=== PATIENT | female | born 1945 | race Caucasian/White ===

== ENCOUNTER 2017-02-06 21:00 | Inpatient (IN) | payer MEDICARE ==
--- NOTE | 2017-02-06 21:28 | ERNOTE ---
Back Pain ER HPI Date of Service: 02/06/17 Time Seen by Provider: 02/06/17 21:27 Immunizations: IMMUNIZATION HX Immunizations Up to Date Yes History of Influenza Vaccine Yes Hx Pneumococcal Vaccination Yes Allergies/Adverse Reactions: Allergies No Known Allergies Allergy (Unverified 02/06/17 21:07) Home Medications: HOME MEDICATIONS Atenolol [Tenormin] 25 mg PO BID 02/06/17 [Last Taken Unknown] Atorvastatin Calcium [Lipitor] 10 mg PO DAILY 02/06/17 [Last Taken Unknown] Insulin NPH Hum/Reg Insulin Hm [Relion Novolin 70-30 Vial] 40 unit SQ HS [Last Taken Unknown] Insulin NPH Hum/Reg Insulin Hm [Relion Novolin 70-30 Vial] 60 unit SQ DAILY [Last Taken Unknown] Levothyroxine Sodium [Synthroid] 25 mcg PO DAILY 02/06/17 [Last Taken Unknown] metFORMIN HCL [Glucophage] 500 mg PO BIDWM 02/06/17 [Last Taken Unknown] Narrative: C/O N AND V AND LOW BACK PAIN. STATES THIS HAS BEEN GETTING WORSE FOR DAYS. SHE SAYS SHE HAS INCREASED URINARY FREQUENCY BUT NO DYSURIA. SHE THEN TELLS ME SHE HAS NOT TAKEN ANY INSULIN FOR A WEEK BECAUSE SHE RAN OUT AND COULD NOT AFFORD TO GET MORE. NO HX OF ANY FEVER OR CHILLS. SHE HAS BEEN EATING AND DRINKING. SHE DENIES NEW MEDS. SHE STATES SHE LAST SAW HER DOCTOR 1-2 MONTHS AGO. A FAMILY MEMBER SAYS THEY CHECKED HER GLUCOSE AT HOME AND IT WAS 400+. SHE DOCTORS IN [place] . Review of Systems - Review of Systems Constitutional: Present: See HPI, fatigue Respiratory: Present: no symptoms reported Cardiology: Present: no symptoms reported Gastrointestinal/Abdominal: Present: nausea, vomiting Genitourinary: Present: See HPI, frequency Musculoskeletal: Present: no symptoms reported Skin: Present: no symptoms reported Neurological: Present: no symptoms reported Endocrine: Present: no symptoms reported Hematologic/Lymphatic: Present: no symptoms reported Psych: Present: no symptoms reported - Patient's Past Medical History Patient History - Medical: Arthritis, Diabetes Type 2 Insulin Dependent, GERD Patient History - Cardiac/Respiratory: Hypertension, Hyperlipidemia Patient History - Cancer: Cervical Patient History - Surgical Procedures: Cholecystectomy, Hysterectomy Patient History - Other: None - Social History Living Situations: home Psych History: No pertinent hx Smoking Status: Former smoker Have you smoked in the past 12 months: No Do you dip or chew tobacco: No Alcohol Use: none Drug Use: none - Immunizations Immunizations Up to Date: Yes Hx Pneumococcal Vaccination: Yes History of Influenza Vaccine: Yes Physical Exam - Physical Exam General Appearance: Present: wd/wn, alert, mild distress, other - OBESE ELDERLY LADY ALERT AND ORIENTED BUT POOR HISTORIAN. Ears, Nose, Throat: Present: normal except -, dry mucous membranes Respiratory: Present: no respiratory distress, normal breath sounds, no accessory muscle use, chest nontender, lungs clear Cardiovascular/Chest: Present: regular rate, rhythm, no murmur, normal peripheral pulses Peripheral Pulses: N=norm/S=strong/W=weak/B=bound/A=absent: Dorsalis-pedis (R): Normal, Dorsalis-pedis (L): Normal Gastrointestinal/Abdominal: Present: normal bowel sounds, nontender, nondistended, soft, no organomegaly Back Exam: Present: normal inspection, normal range of motion, no CVA tenderness Neurological Exam: Present: alert, oriented, normal mood/affect Skin Exam: Present: normal color, warm/dry ED Progress - Date and Time Seen: Date and Time: 02/06/17 22:32 PT. ASKED TO URINATE AND THEN MOM GOT UPSET WHEN RN ASKED PT TO WALK TO B.R. TO GIVE URINE SAMPLE. - Results and Orders Patient's Lab Results:: I have reviewed the patient's lab results. Results and Orders: ELEVATED SERUM GLUCOSE = 496 WITH LOW CO2. SHE HAS + GLUC I URINE AND + KETONES IN HER URINE BUT NO SIG. BACT . WBC = 15.1 WITH HGB OF 15.7 . HGB A 1 C = 10.2 - Vital Signs Vital Signs: Vital Signs 02/06/17 21:10 Temperature 36.4 C L Pulse Rate 103 H Respiratory 22 H Rate Blood Pressure 193/79 O2 Sat by Pulse 98 Oximetry - Progress/Reassessment Chief Complaint: Back Pain Plan - Plan Plan: BECAUSE OF POOR HOME SITUATION AND HYPERGLYCEMIA WITH KETONURIA I WILL ADMIT TO HOSPITALIST ( GIANLUCA) FOR IV'S AND INSULIN AND HELP WITH GETTING HER MEDS. Departure Clinical Impression: DKA (diabetic ketoacidoses) Qualifiers: Diabetes mellitus type: type 2 Diabetes mellitus complication detail: without coma Qualified Code(s): E13.10 - Other specified diabetes mellitus with ketoacidosis without coma - Departure Disposition: CH Condition: Fair
[2017-02-06 21:43] LABS: Urine Bilirubin 1 mg/dl (NEGATIVE); Urine Blood 25 /ul (NEGATIVE); Urine Ketone Large mg/dL (NEGATIVE); Urine Nitrite Negative (NEGATIVE); Urine Protein 100 mg/dL (NEGATIVE); Urine Specific Gravity 1.025 SP.GR. (1.005-1.010); Urine Urobilinogen Normal (NORMAL); Urine pH 5.5 pH (5.0-7.0)
[2017-02-06 21:54] LABS: Urine Appearance Clear; Urine Color Yellow
[2017-02-06 21:55] LABS: Urine Bacteria TRACE; Urine RBC 0-5 /hpf (0-5); Urine WBC 0-5 /hpf (0-5)
[2017-02-06 22:09] LABS: Hematocrit 49.3 % (37.0-47.0); Hemoglobin 15.7 gm/dL (12.5-16.0); Mean Cell Volume 84.7 fl (78-100); Mean Corpuscular Hgb Conc 31.8 g/dl (32-36); Mean Platelet Volume 10.6 fl (6.0-9.5); Neutrophil # 13.3 K/mm3 (1.3-6.0); Neutrophil % 88.3 % (42-75.0); Platelet Count 340 K/mm3 (150-450); Red Blood Count 5.82 M/mm3 (4.2-5.4); White Blood Count 15.1 K/mm3 (4.0-10.5)
--- OUTSIDE RECORDS SUMMARY | 2017-02-06 22:09 | XMS REPORT | Continuity of Care Document ---
:1945 Author Organization [facility] ([facility]) Address [address] [place] [address] Phone [phone] Care Team Providers Name Role Phone Elian Macedo Primary Care Provider [phone] Source Comments This disclosure is being made pursuant to the Care Everywhere program, applicable federal and state laws, and may not contain all informaitonavailable regarding this patient.[facility] ([facility]) Active Allergies and Adverse Reactions No Known Allergies Current Medications Prescription Sig. Disp. Refills Start Date End Date Status hydrochlorothiazide 25 mg Take 25 mg by Active tablet mouth daily. atenolol 25 mg tablet Take 25 mg by Active mouth daily. levothyroxine 25 mcg tablet Take 25 mcg by Active mouth every morning before breakfast. atorvastatin 10 mg tablet Take 10 mg by Active mouth every evening. omega-3 fatty acids 1 gram Take 1 g by Active capsule mouth 2 times daily HYDROCODONE/ACETAMINOPHEN Active (VICODIN ES PO) OTHER new insulin: Active "RELION" metFORMIN 500 mg tablet Take 500 mg by Active mouth 2 times daily with meals. canagliflozin (INVOKANA) 100 Take 100 mg by Active mg tablet mouth daily. 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 Right Eye Left Eye Time To Recurrence: Time To Recurrence: Date VA (D cc) CMT Status Procedure VA (D cc) CMT Status Procedure Cmts 03/20/2012 20/125 Avastin #[id number] 20/200 Avastin #[id number] 04/17/2012 20/100 +1 20/150 Triesence 05/21/2012 20/200 20/100-1 Triesence 10/15/2012 20/125 -1 triesence [id number] 20/150 03/18/2013 20/60-1 20/150 Triesence [id number] 04/29/2013 20/80 Triesence [id number] 20/100 -1 10/14/2013 20/60-2 sc 20/150 sc Other (see comments) kenalog #[id number] 02/24/2014 20/50 -1 cc 20/200 -2 cc Triesence [id number] 05/26/2014 20/70+2 cc Triesence [id number] 20/125 cc 11/17/2014 20/60 cc 20/125-1 cc Triesence [id number] 12/22/2014 20/50 cc Triesence [id number] 20/200 -2 cc 08/03/2015 20/50 -1 cc Triesence [id number] 20/125 cc 02/01/2016 20/50-2 +3 cc Iluvien [id number] 20/150 cc Resolved Problems Problem Noted Date Resolved Date Diabetic retinopathy of both eyes 05/21/2012 11/02/2015 Most Recent Encounters Date Type Specialty Providers Description 01/30/2017 Office Visit Ophthalmology Govind Obrien, Chief Comp: Patient Specialty Reported Reason For Visit 01/02/2017 Office Visit Ophthalmology Govind Obrien, Chief Comp: Patient Specialty Reported Reason For Visit 11/28/2016 Office Visit Ophthalmology Govind Obrien, Chief Comp: Patient Specialty Reported Reason For Visit Social History Tobacco Use Types Packs/Day Years Used Date Former Smoker Cigarettes 1 Quit: 03/20/1985 Smokeless Tobacco: Never Used Tobacco Cessation:Counseling Given: Yes Comments: Alcohol Use Drinks/Week oz/Week Comments No Plan of Care Date Type Specialty Providers Description 03/20/2017 Appointment Ophthalmology Govind Obrien MD Chief Comp: Patient Specialty [address] [place] [address] Visit [phone] (Fax) Health Maintenance Due Date Last Done Comments HCV Screening 1945 Hepatitis B Vaccine (1 of 3 - 1945 Primary Series) Tdap Vaccine 02[birth year]19/1956 DIABETIC: Cholesterol 1963 Diabetic: Hdl 1963 DIABETIC: Hemoglobin A1C 1963 Diabetic: Ldl 1963 DIABETIC: Microalbumin 1963 DIABETIC: Triglycerides 1963 Td Vaccine 1963 Mammogram 1985 Colonoscopy 1995 Zoster Vaccine 2005 Osteoporosis Screening (DXA 2010 Bone Density) Pneumococcal Vaccine (1 of 2 2010 - PCV13) DIABETIC: Foot Exam 07/22/2012 Influenza Vaccine: Seasonal 05/13/2017 (Season Ended) DIABETIC: Retinal Eye Exam 09/26/2017 09/26/2016, Additional history exists 06/27/2016, 04/25/2016 Results from Last 3 Months Not on file
[2017-02-06 22:18] LABS: Albumin * 3.7 gm/dl (3.4-5.0); Anion Gap 32.5 mmol/L (6.8-13.8); BUN/Creatinine Ratio 13.8 (9.0-21.6); Bilirubin, Total 0.5 mg/dL (0.0-1.1); Ca. Corrected For Albumin 9.3 mg/dL (8.4-10.2); Calcium * 9.4 mg/dL (7.9-10.9); Carbon Dioxide 10.6 mmol/L (24-32.6); Potassium 5.1 mmol/L (3.4-4.6); TSH * 2.433 uIU/mL (0.358-3.74)
[2017-02-06 23:19] LABS: Hemoglobin A1C 10.2 % (4.00-6.0)
[2017-02-07] MEDS ORDERED: NORMAL SALINE 1,000 ML IV ONE ×2 (00:22→00:57)
[2017-02-07] MEDS ORDERED: INSULIN REGULAR, HUMAN 100 UNITS/ML VIAL IV ONE (00:22)
[2017-02-07] MEDS ORDERED: ONDANSETRON HCL/PF 2 MG/ML VIAL IV ONE (00:22)
[2017-02-07] MEDS ORDERED: INSULIN REGULAR, HUMAN 100 UNITS/ML VIAL ONE (00:55)
[2017-02-07] MEDS ORDERED: ONDANSETRON HCL/PF 2 MG/ML VIAL ONE (00:55)
--- OUTSIDE RECORDS SUMMARY | 2017-02-07 01:06 | XMS REPORT | Continuity of Care Document ---
:1945 Author Organization [facility] ([facility]) Address [address] [place] [address] Phone [phone] Care Team Providers Name Role Phone Elian Macedo Primary Care Provider [phone] Source Comments This disclosure is being made pursuant to the Care Everywhere program, applicable federal and state laws, and may not contain all informaitonavailable regarding this patient.[facility] ([facility]) Active Allergies and Adverse Reactions No Known [...] CMT Status Procedure Cmts 03/20/2012 20/125 Avastin #[id number] 20/200 Avastin #[id number] 04/17/2012 20/100 +1 20/150 Triesence 05/21/2012 20/200 20/100-1 Triesence 10/15/2012 20/125 -1 triesence [id number] 20/150 03/18/2013 20/60-1 20/150 Triesence [id number] 04/29/2013 20/80 Triesence [id number] 20/100 -1 10/14/2013 20/60-2 sc 20/150 sc Other (see comments) kenalog #[id number] 02/24/2014 20/50 -1 cc 20/200 -2 cc Triesence [id number] 05/26/2014 20/70+2 cc Triesence [id number] 20/125 cc 11/17/2014 20/60 cc 20/125-1 cc Triesence [id number] 12/22/2014 20/50 cc Triesence [id number] 20/200 -2 cc 08/03/2015 20/50 -1 cc Triesence [id number] 20/125 cc 02/01/2016 20/50-2 +3 cc Iluvien [id number] 20/150 cc Resolved Problems Problem Noted Date [...] Obrien MD Chief Comp: Patient Specialty [address] [place] [address] Visit [phone] (Fax) Health Maintenance Due Date Last Done [...]
[2017-02-07 01:21] LABS: Magnesium 2.1 mg/dL (1.2-2.8); Phosphorus 5.2 mg/dL (2.2-4.2)
[2017-02-07 03:12] LABS: Anion Gap 31.8 mmol/L (6.8-13.8); BUN/Creatinine Ratio 15.8 (9.0-21.6); Calcium * 9.2 mg/dL (7.9-10.9); Estimated Creat Clear 25.8; Potassium 4.8 mmol/L (3.4-4.6)
--- NOTE | 2017-02-07 03:57 | HP ---
Chief Complaint - Chief Complaint Date of Service: 02/07/17 Time of Service: 03:52 Chief Complaint: DKA History of Present Illness: 71 years old elderly female adm to the hospital with reports of polyuria, loss of appetite,back pain and and leg pain. pt stated her discomfort began a year ago but got progressively worst last night. While at home her family took her Blood glucose which was 400mg/dl and brought her to the ER. She has not taken her insulin for about 1-2 weeks because she didn't have money to buy more. PMH significant for diabetes, hypothyroidism, hypertension and hyerlipidemia. In ER Blood glucose 496 she was given 10 unit insulin and blood glucose 355, will initiate insulin drip. Positive serum and urine ketone, A1C 10.2, WBC 15, K+ 5.1. She had IVF bolus in ER and will continue with aggressive IVF resuscitation. Monitor BMP. Plan of care discussed with pt she verbalized understanding and agrees. - Patient's Past Medical History Patient History - Medical: Arthritis, Diabetes Type 2 Insulin Dependent, GERD Patient History - Cardiac/Respiratory: Hypertension, Hyperlipidemia Patient History - Cancer: Cervical Patient History - Surgical Procedures: Cholecystectomy, Hysterectomy Patient History - Other: None - Family History Mother Family History - Medical: Father Family History - Medical: - Social History Living Situations: home Psych History: No pertinent hx Smoking Status: Former smoker Have you smoked in the past 12 months: No Do you dip or chew tobacco: No Alcohol Use: none Drug Use: none - Immunizations Immunizations Up to Date: Yes Hx Pneumococcal Vaccination: Yes History of Influenza Vaccine: Yes Review Of Systems (GEN) - Review of Systems Generalized/Overall Review: Present: No Symptoms Reported EENTM: Present: No Symptoms Reported Respiratory: Present: Cough Cardiac: Present: Palpitations Abdominal: Present: No Symptoms Reported Genitourinary: Present: Frequency, Polyuria Musculoskeletal: Present: Joint Pain, Back Pain Neurological: Present: No Symptoms Reported Skin: Present: No Symptoms Reported Endocrine: Present: Excessive Sweating, Increased Thirst, Other - no appetite Immunizations: IMMUNIZATION HX Immunizations Up to Date Yes History of Influenza Vaccine Yes Hx Pneumococcal Vaccination Yes Allergies/Adverse Reactions: Allergies Allergy/AdvReac Type Severity Reaction Status Date / Time No Known Allergies Allergy Unverified 02/06/17 21:07 Home Medications: HOME MEDICATIONS Atenolol [Tenormin] 25 mg PO BID 02/06/17 [Last Taken 02/05/17] Atorvastatin Calcium [Lipitor] 10 mg PO DAILY 02/06/17 [Last Taken 02/05/17] Insulin NPH Hum/Reg Insulin Hm [Relion Novolin 70-30 Vial] 40 unit SQ HS [Last Taken 02/03/17] Insulin NPH Hum/Reg Insulin Hm [Relion Novolin 70-30 Vial] 60 unit SQ DAILY [Last Taken 02/03/17] Levothyroxine Sodium [Synthroid] 25 mcg PO DAILY 02/06/17 [Last Taken 02/05/17] metFORMIN HCL [Glucophage] 500 mg PO BIDWM 02/06/17 [Last Taken 02/05/17] Exam - Exam Vital Signs: Vital Signs - Last Taken Temp 36.2 C L 02/07/17 01:26 Pulse 115 H 02/07/17 02:35 Resp 26 H 02/07/17 02:35 BP 152/58 02/07/17 02:35 Pulse Ox 100 02/07/17 02:35 Constitutional: Present: Alert, Oriented x3, Cooperative, Well developed, No distress, Elderly ENT Exam: Present: dry mucous membranes Eye Exam: bilateral eye: PERRL Neck: Present: full range of motion Back Exam: Present: normal inspection Breasts: Present: Exam deferred Respiratory: Present: chest non-tender, normal breath sounds, no respiratory distress, no accessory muscle use Cardiovascular/Chest: Present: normal peripheral pulses, no chest tenderness, tachycardia Peripheral Pulses: dorsalis-pedis (R): 3+, dorsalis-pedis (L): 3+ Abdomen: Present: Normal bowel sounds, soft, nontender, nondistended, no rebound tenderness /Rectal: Present: Exam deferred Extremity: Present: normal range of motion, non-tender, normal inspection, no pedal edema, normal capillary refill Skin Exam: Present: normal color, warm/dry, no cyanosis Lymphatic: Present: no adenopathy Neurologic: Present: oriented x 3 Appearance: Present: appropriate appearance Eye contact: Present: cooperative, good eye contact Thoughts: Present: normal thought pattern Diagnostic Studies: Abnormal Lab Results 02/07/17 02/07/17 02/07/17 Range/Units 02:15 02:45 Unknown VBG pH 6.965 L* (7.32-7.43) Plasma Sodium 145 H (130-142) mmol/L Potassium 4.8 H (3.4-4.6) mmol/L Carbon Dioxide 8.0 L (24-32.6) mmol/L Anion Gap 31.8 H (6.8-13.8) mmol/L BUN 25 H (3-23) mg/dL Creatinine 1.58 H (0.4-1.4) mg/dL Est GFR (Non-Af Amer) 34 L (60-130) mL/min Random Glucose 511 H* (70-110) mg/dL Phosphorus 5.2 H (2.2-4.2) mg/dL Serum Ketones Positive - 10mg/dl H (NEGATIVE) Laboratory Results WBC 15.1 K/mm3 (4.0-10.5) H 02/06/17 21:50 RBC 5.82 M/mm3 (4.2-5.4) H 02/06/17 21:50 Hgb 15.7 gm/dL (12.5-16.0) 02/06/17 21:50 Hct 49.3 % (37.0-47.0) H 02/06/17 21:50 MCV 84.7 fl (78-100) 02/06/17 21:50 MCH 27.0 pg (27-31) 02/06/17 21:50 MCHC 31.8 g/dl (32-36) L 02/06/17 21:50 RDW 15.0 % (11.5-14.0) H 02/06/17 21:50 Plt Count 340 K/mm3 (150-450) 02/06/17 21:50 MPV 10.6 fl (6.0-9.5) H 02/06/17 21:50 Immature Gran % (Auto) 2.90 % (0.001-0.429) H 02/06/17 21:50 Immature Gran # (Auto) 0.44 K/mm3 (0.000-0.0310) H 02/06/17 21:50 Neutrophils % 88.3 % (42-75.0) H 02/06/17 21:50 Lymphocytes % 5.0 % (20-51) L 02/06/17 21:50 Monocytes % 3.2 % (0.0-9) 02/06/17 21:50 Eosinophils % 0.0 % (0.0-3.0) 02/06/17 21:50 Basophils % 0.6 % (0.0-1.0) 02/06/17 21:50 Nucleated RBC % 0.0 k/mm3 (0-1) 02/06/17 21:50 Neutrophils # 13.3 K/mm3 (1.3-6.0) H 02/06/17 21:50 Lymphocytes # 0.8 k/mm3 (1.5-3.5) L 02/06/17 21:50 Monocytes # 0.5 k/mm3 (0.0-1.0) 02/06/17 21:50 Eosinophils # 0.0 k/mm3 (0.0-0.7) 02/06/17 21:50 Absolute Basophils 0.1 k/mm3 (0.0-0.1) 02/06/17 21:50 VBG pH 6.965 (7.32-7.43) L* 02/07/17 02:15 Sodium 138 mmol/L (132-142) 02/07/17 02:45 Plasma Sodium 145 mmol/L (130-142) H 02/07/17 02:45 Potassium 4.8 mmol/L (3.4-4.6) H 02/07/17 02:45 Chloride 103 mmol/L (97-106) 02/07/17 02:45 Carbon Dioxide 8.0 mmol/L (24-32.6) L 02/07/17 02:45 Anion Gap 31.8 mmol/L (6.8-13.8) H 02/07/17 02:45 BUN 25 mg/dL (3-23) H 02/07/17 02:45 Creatinine 1.58 mg/dL (0.4-1.4) H 02/07/17 02:45 Est GFR (Non-Af Amer) 34 mL/min (60-130) L 02/07/17 02:45 BUN/Creatinine Ratio 15.8 (9.0-21.6) 02/07/17 02:45 Random Glucose 511 mg/dL (70-110) H* 02/07/17 02:45 Mean Blood Glucose 254 mg/dL 02/06/17 21:50 Hemoglobin A1c 10.2 % (4.00-6.0) H 02/06/17 21:50 Calcium 9.2 mg/dL (7.9-10.9) 02/07/17 02:45 Calcium Adj for Albumin 9.3 mg/dL (8.4-10.2) 02/06/17 21:50 Phosphorus 5.2 mg/dL (2.2-4.2) H 02/07/17 Unknown Magnesium 2.1 mg/dL (1.2-2.8) 02/07/17 Unknown Total Bilirubin 0.5 mg/dL (0.0-1.1) 02/06/17 21:50 AST 9 U/L (0-48) 02/06/17 21:50 ALT 16 U/L (19-67) L 02/06/17 21:50 Alkaline Phosphatase 136 U/L (50-170) 02/06/17 21:50 Total Protein 9.0 gm/dL (6.2-8.2) H 02/06/17 21:50 Albumin 3.7 gm/dl (3.4-5.0) 02/06/17 21:50 TSH 2.433 uIU/mL (0.358-3.74) 02/06/17 21:50 Urine Color Yellow 02/06/17 21:35 Urine Appearance Clear 02/06/17 21:35 Urine pH 5.5 pH (5.0-7.0) 02/06/17 21:35 Ur Specific [place] 1.025 SP.GR. (1.005-1.010) 02/06/17 21:35 Urine Protein 100 mg/dL (NEGATIVE) H 02/06/17 21:35 Urine Glucose (UA) >=1000 mg/dL (NEGATIVE) H 02/06/17 21:35 Urine Ketones Large mg/dL (NEGATIVE) 02/06/17 21:35 Urine Blood 25 /ul (NEGATIVE) H 02/06/17 21:35 Urine Nitrate Negative (NEGATIVE) 02/06/17 21:35 Urine Bilirubin 1 mg/dl (NEGATIVE) H 02/06/17 21:35 Urine Ictotest Negative (NEGATIVE) 02/06/17 21:35 Prot Sulfosalicylic Acd 2+ mg/dL (0) H 02/06/17 21:35 Urine Urobilinogen Normal EU/dl (NORMAL) 02/06/17 21:35 Ur Leukocyte Esterase Negative /ul (NEGATIVE) 02/06/17 21:35 Urine RBC 0-5 /hpf (0-5) 02/06/17 21:35 Urine WBC 0-5 /hpf (0-5) 02/06/17 21:35 Ur Epithelial Cells >25 /hpf (0-5) H 02/06/17 21:35 Urine Bacteria Trace (NONE) 02/06/17 21:35 Urine Culture Comments No culture indicated 02/06/17 21:35 Serum Ketones Positive - 10mg/dl (NEGATIVE) H 02/07/17 Unknown Assessment/Plan - Narrative Narrative: DKA secondary to non compliance, pt stated she ran out of her insulin and didn' t have money to buy more On adm BG 496-->355_--->511 Ketones noted in serum and urine A1C 10.2 Accu-check Q2hr initially Monitor on Telemetry 10 unit insulin given in ER, initiated insulin drip on unit. continue insulin drip per DKA protocols IVF bolus given in ER continue with IVF. Keep NPO until stable BG 200-300mg/dl, then switch IVF D5W 0.45 Mag and phos noted continue to monitor electrolytes Serum osmolality pending BMP Q2hr Diabetes Plan same as above Leukocytosis On adm WBC 15---->17 Urinalysis noted CXR pending Troponin negative Hypertension On adm BP 139/96 Continue with home medication Monitor Vital signs Hyperlipidemia Resume home dose of medication - Assessment/Plan (1) DKA (diabetic ketoacidoses) Problem: Acute Qualifiers: Diabetes mellitus type: type 2 Diabetes mellitus complication detail: without coma Qualified Code(s): E13.10 - Other specified diabetes mellitus with ketoacidosis without coma (2) Electrolyte imbalance Problem: Acute (3) Diabetes Problem: Chronic Qualifiers: Diabetes mellitus type: type 2 (4) Hypertension Problem: Chronic (5) Hyperlipidemia Problem: Chronic (6) Hypothyroidism Problem: Chronic
[2017-02-07] MEDS: INSULIN REGULAR HUMAN REC 100 UNITS in NORMAL SALINE 100 ML IV PRN ×2 (04:27→20:04)
[2017-02-07] MEDS ORDERED: POTASSIUM CHLORIDE 10 MEQ in NORMAL SALINE 1,000 ML IV SCH ×5 (05:00→07:00)
[2017-02-07 06:02] LABS: Hematocrit 46.1 % (37.0-47.0); Hemoglobin 14.3 gm/dL (12.5-16.0); Mean Cell Volume 85.2 fl (78-100); Mean Corpuscular Hemoglobin 26.4 pg (27-31); Mean Platelet Volume 10.8 fl (6.0-9.5); Neutrophil # 14.4 K/mm3 (1.3-6.0); Neutrophil % 87.9 % (42-75.0); Platelet Count 339 K/mm3 (150-450); Red Blood Count 5.41 M/mm3 (4.2-5.4); Red Cell Distribution Width 15.2 % (11.5-14.0); White Blood Count 16.4 K/mm3 (4.0-10.5)
[2017-02-07 06:16] LABS: Anion Gap 30.8 mmol/L (6.8-13.8); BUN/Creatinine Ratio 17.3 (9.0-21.6); Calcium * 9.1 mg/dL (7.9-10.9); Carbon Dioxide 7.8 mmol/L (24-32.6); Estimated Creat Clear 27.2; Potassium 4.6 mmol/L (3.4-4.6)
[2017-02-07] MEDS ORDERED: POTASSIUM CHLORIDE 20 MEQ in DEXTROSE 5%-0.5 NORMAL SALINE 990 ML IV SCH (07:00)
[2017-02-07] MEDS ORDERED: POTASSIUM CHLORIDE 10 MEQ in NORMAL SALINE 1,000 ML IV PRN ×2 (07:29→07:30)
[2017-02-07] MEDS ORDERED: POTASSIUM CHLORIDE 20 MEQ in DEXTROSE 5%-0.5 NORMAL SALINE 990 ML IV PRN ×2 (07:30→07:31)
[2017-02-07 08:29] LABS: Potassium 4.6 mmol/L (3.4-4.6)
[2017-02-07 08:33] LABS: Anion Gap 28.8 mmol/L (6.8-13.8); Carbon Dioxide 9.8 mmol/L (24-32.6)
[2017-02-07] MEDS: NORMAL SALINE 1,000 ML IV PRN ×3 (08:37→22:03)
[2017-02-07] MEDS: LEVOTHYROXINE SODIUM 25 MCG TABLET PO SCH (08:47)
[2017-02-07] MEDS: ATENOLOL 25 MG TABLET PO SCH ×2 (08:47→20:00)
[2017-02-07 10:34] LABS: Anion Gap 23.3 mmol/L (6.8-13.8); Carbon Dioxide 12.1 mmol/L (24-32.6); Potassium 4.4 mmol/L (3.4-4.6)
[2017-02-07 11:07] LABS: BUN/Creatinine Ratio 17.2 (9.0-21.6); Calcium * 8.4 mg/dL (7.9-10.9)
[2017-02-07 12:23] LABS: Carbon Dioxide 14.1 mmol/L (24-32.6); Potassium 4.1 mmol/L (3.4-4.6)
[2017-02-07 14:39] LABS: Carbon Dioxide 15.4 mmol/L (24-32.6); Potassium 4.4 mmol/L (3.4-4.6)
[2017-02-07 17:15] LABS: Anion Gap 18.1 mmol/L (6.8-13.8); Carbon Dioxide 15.5 mmol/L (24-32.6); Potassium 3.6 mmol/L (3.4-4.6)
[2017-02-07] MEDS ORDERED: POTASSIUM CHLORIDE 20 MEQ TABLET.SA PO ONE (18:00)
[2017-02-07] MEDS ORDERED: ROSUVASTATIN CALCIUM 10 MG TABLET PO SCH (21:00)
[2017-02-07 21:32] LABS: Anion Gap 17.3 mmol/L (6.8-13.8); BUN/Creatinine Ratio 17.4 (9.0-21.6); Calcium * 8.2 mg/dL (7.9-10.9); Carbon Dioxide 15.6 mmol/L (24-32.6); Estimated Creat Clear 28.3; Potassium 3.9 mmol/L (3.4-4.6)
[2017-02-08 01:44] LABS: Anion Gap 16.6 mmol/L (6.8-13.8); BUN/Creatinine Ratio 17.6 (9.0-21.6); Calcium * 8.2 mg/dL (7.9-10.9); Carbon Dioxide 14.5 mmol/L (24-32.6); Potassium 4.1 mmol/L (3.4-4.6)
[2017-02-08] MEDS: INSULIN REGULAR HUMAN REC 100 UNITS in NORMAL SALINE 100 ML IV PRN (03:15)
[2017-02-08] MEDS: NORMAL SALINE 1,000 ML IV PRN (05:17)
[2017-02-08 05:37] LABS: Anion Gap 14.1 mmol/L (6.8-13.8); BUN/Creatinine Ratio 15.7 (9.0-21.6); Blood Urea Nitrogen 21 mg/dL (3-23); Calcium * 8.1 mg/dL (7.9-10.9); Carbon Dioxide 16.8 mmol/L (24-32.6); Chloride 115 mmol/L (97-106); Estimated Creat Clear 30.5; Glucose * 214 mg/dL (70-110); Potassium 3.9 mmol/L (3.4-4.6); Sodium 142 mmol/L (132-142)
[2017-02-08] MEDS: ATENOLOL 25 MG TABLET PO SCH ×2 (09:22→21:44)
[2017-02-08] MEDS: LEVOTHYROXINE SODIUM 25 MCG TABLET PO SCH (09:22)
[2017-02-08 10:11] LABS: Anion Gap 13.6 mmol/L (6.8-13.8); BUN/Creatinine Ratio 15.3 (9.0-21.6); Calcium * 8.2 mg/dL (7.9-10.9); Estimated Creat Clear 32.9; Potassium 3.6 mmol/L (3.4-4.6)
--- NOTE | 2017-02-08 11:59 | PN ---
Subjective - Date and Time Seen Date: 02/08/17 Time: 11:58 Subjective Narrative: Bryanna reports feeling well. No concerns. Sugars have been stable under 200 the last few hours. Metabolic acidosis has significantly improved. Denies fever , chills, n/v. Objective - Vitals Vitals: Last Vital Signs Temp 37 C 02/08/17 06:11 Pulse 58 L 02/08/17 09:56 Resp 18 02/08/17 09:56 BP 137/59 02/08/17 09:56 Pulse Ox 100 02/08/17 09:56 - Abnormal Lab Findings Abnormal Lab Findings: Abnormal Lab Results 02/07/17 02/07/17 02/07/17 Range/Units 12:08 14:28 17:00 VBG pH (7.32-7.43) Sodium (132-142) mmol/L Plasma Sodium (130-142) mmol/L Chloride 109 H 109 H (97-106) mmol/L Carbon Dioxide 14.1 L 15.4 L 15.5 L (24-32.6) mmol/L Anion Gap 20.0 H 20.0 H 18.1 H (6.8-13.8) mmol/L BUN (3-23) mg/dL Creatinine (0.4-1.4) mg/dL Est GFR (Non-Af Amer) (60-130) mL/min Random Glucose (70-110) mg/dL Serum Ketones (NEGATIVE) 02/07/17 02/08/17 02/08/17 Range/Units 21:22 01:30 05:20 VBG pH (7.32-7.43) Sodium (132-142) mmol/L Plasma Sodium 144 H (130-142) mmol/L Chloride 111 H 113 H 115 H (97-106) mmol/L Carbon Dioxide 15.6 L 14.5 L 16.8 L (24-32.6) mmol/L Anion Gap 17.3 H 16.6 H 14.1 H (6.8-13.8) mmol/L BUN 25 H 24 H (3-23) mg/dL Creatinine 1.44 H (0.4-1.4) mg/dL Est GFR (Non-Af Amer) 38 L 41 L 41 L (60-130) mL/min Random Glucose 211 H D 218 H 214 H (70-110) mg/dL Serum Ketones Positive - 30mg/dl H (NEGATIVE) 02/08/17 02/08/17 02/08/17 Range/Units 05:20 09:57 09:57 VBG pH 7.225 L 7.241 L (7.32-7.43) Sodium 144 H (132-142) mmol/L Plasma Sodium 145 H (130-142) mmol/L Chloride 114 H (97-106) mmol/L Carbon Dioxide 20.0 L (24-32.6) mmol/L Anion Gap (6.8-13.8) mmol/L BUN (3-23) mg/dL Creatinine (0.4-1.4) mg/dL Est GFR (Non-Af Amer) 45 L (60-130) mL/min Random Glucose 160 H (70-110) mg/dL Serum Ketones (NEGATIVE) - Exam Constitutional: Present: Alert, Oriented x3, Cooperative ENT Exam: Present: hearing grossly normal Respiratory: Present: lungs clear, normal breath sounds Cardiovascular/Chest: Present: regular rate, rhythm, no murmur Abdomen: Present: Normal bowel sounds, soft, nontender, nondistended Skin Exam: Present: normal color, warm/dry, no cyanosis Assessment/Plan - Problems/Diagnosis (1) DKA (diabetic ketoacidoses) Problem: Acute Qualifiers: Diabetes mellitus type: type 2 Diabetes mellitus complication detail: without coma Qualified Code(s): E13.10 - Other specified diabetes mellitus with ketoacidosis without coma Narrative: Acidosis improved. Sugars controlled. Will saline lock IVFs, start consistent carb diet. Will start NPH 40 units BID (home dose is 60 units AM and 40 units PM ). An hour after starting home insulin will stop insulin drip. Will transfer to the floor. Will continue to monitor sugars every 2 hours, if remain stable will change to ACHS. Anticipate discharge tomorrow.
[2017-02-08] MEDS ORDERED: HUM INSULIN NPH/REG INSULIN HM 100 UNIT/ML VIAL SC SCH ×3 (12:00→21:00)
[2017-02-08] MEDS ORDERED: POTASSIUM CHLORIDE 20 MEQ TABLET.SA PO ONE (12:00)
[2017-02-08] MEDS ORDERED: ROSUVASTATIN CALCIUM 10 MG TABLET PO SCH (21:00)
[2017-02-09 06:24] LABS: Anion Gap 12.1 mmol/L (6.8-13.8); BUN/Creatinine Ratio 13.1 (9.0-21.6); Calcium * 8.5 mg/dL (7.9-10.9); Carbon Dioxide 20.4 mmol/L (24-32.6); Estimated Creat Clear 41.2; Potassium 3.5 mmol/L (3.4-4.6)
[2017-02-09] MEDS ORDERED: LEVOTHYROXINE SODIUM 25 MCG TABLET PO SCH (07:00)
[2017-02-09] MEDS ORDERED: HUM INSULIN NPH/REG INSULIN HM 100 UNIT/ML VIAL SC SCH (09:00)
[2017-02-09] MEDS: ATENOLOL 25 MG TABLET PO SCH (09:17)
[2017-02-09 10:15] VITALS: BP 140/64
--- NOTE | 2017-02-09 10:59 | DS ---
(1) DKA (diabetic ketoacidoses) Diagnosis(s): Bryanna was admitted for diabetic ketoacidosis due to medication noncompliance. She was placed on aggressive IVF and IV insulin per DKA protocol. Glucose improved as did metabolic acidosis. Once glucose was below 200 and electrolyte imbalance had significantly improved she was transitioned to home insulin dosing and insulin drip was discontinued. She was moved out of the SCU and monitored for another 24 hours. She did well and was discharged to home. She will continue home insulin and educated on the importance of taking this medication. Problem: Acute Qualifiers: Diabetes mellitus type: type 2 Diabetes mellitus complication detail: without coma Qualified Code(s): E13.10 - Other specified diabetes mellitus with ketoacidosis without coma Procedures Performed: none Discharge Disposition: Home self care Disposition: Home self-care Condition: Good Discharge Activity: Activity as tolerated Discharge Diet: Consistent carbs Referrals: [facility] [Non Staff Physicians] - (Follow up with PCP in 1-2 weeks) Problem Oriented Discharge Instructions to Patient/Family: Diabetic Ketoacidosis Additional Patient Instructions (free text): Follow up with Dr. Macedo in 1-2 weeks. [facility] will call you on Friday with follow up appointment. Prescriptions (Any new or edited meds): Atenolol [Tenormin] 25 mg PO BID #60 tablet Atorvastatin Calcium [Lipitor] 10 mg PO DAILY #30 tablet Levothyroxine Sodium [Synthroid] 25 mcg PO DAILY #30 tablet metFORMIN HCL [Glucophage] 500 mg PO BIDWM #60 tablet Complete Home Medications List: Complete Home Medication List: Insulin NPH Hum/Reg Insulin Hm [Relion Novolin 70-30 Vial] 40 unit SQ HS Insulin NPH Hum/Reg Insulin Hm [Relion Novolin 70-30 Vial] 60 unit SQ DAILY Atenolol [Tenormin] 25 mg PO BID #60 tablet 02/09/17 Atorvastatin Calcium [Lipitor] 10 mg PO DAILY #30 tablet 02/09/17 Levothyroxine Sodium [Synthroid] 25 mcg PO DAILY #30 tablet 02/09/17 metFORMIN HCL [Glucophage] 500 mg PO BIDWM #60 tablet 02/09/17
== END 2017-02-09 11:45 | disposition home or self-care (01) | DRG 639 ==
LOC: ER 21:00 → MS 02-07 00:59 → SCU 02-07 01:56 → MS 02-08 13:48
PROVIDERS: ADMIT Nurse Practitioner; ATTEND Family Medicine
DX: E13.10 Other specified diabetes mellitus with ketoacidosis without coma (principal); D72.829 Elevated white blood cell count, unspecified; I10 Essential (primary) hypertension; E78.5 Hyperlipidemia, unspecified; E03.9 Hypothyroidism, unspecified; Z79.4 Long term (current) use of insulin

== ENCOUNTER 2017-08-03 14:03 | Emergency (ER) | payer MEDICARE ==
[2017-08-03 14:14] VITALS: BP 172/91
[2017-08-03] MEDS ORDERED: AZITHROMYCIN 250 MG TABLET PO ONE (15:06)
--- NOTE | 2017-08-03 15:20 | ERNOTE ---
Time Seen by Provider: 08/03/17 14:21 Stated Complaint: COLD Presenting Symptoms:: cough, fever Source: patient, RN notes reviewed Exam Limitations: no limitations Immunizations: IMMUNIZATION HX Immunizations Up to Date Yes History of Influenza Vaccine More Information Required Hx Pneumococcal Vaccination Yes Allergies/Adverse Reactions: Allergies No Known Allergies Allergy (Unverified 02/06/17 21:07) Home Medications: HOME MEDICATIONS Insulin NPH Hum/Reg Insulin Hm [Relion Novolin 70-30 Vial] 40 unit SQ HS [Last Taken 02/03/17] Insulin NPH Hum/Reg Insulin Hm [Relion Novolin 70-30 Vial] 60 unit SQ DAILY [Last Taken 02/03/17] Atorvastatin Calcium [Lipitor] 10 mg PO DAILY #30 tablet 02/09/17 [Last Taken Unknown] Levothyroxine Sodium [Synthroid] 25 mcg PO DAILY #30 tablet 02/09/17 [Last Taken Unknown] metFORMIN HCL [Glucophage] 500 mg PO BIDWM #60 tablet 02/09/17 [Last Taken Unknown] Atenolol [Tenormin] 25 mg PO DAILY 08/03/17 [Last Taken Unknown] Azithromycin 250 mg PO DAILY #4 tablet 08/03/17 [Last Taken Unknown] Hydrochlorothiazide 25 mg PO DAILY 08/03/17 [Last Taken Unknown] [place] [employer]/[place]-3 Fatty Acids [Fish Oil] 1,200 mg PO DAILY 08/03/17 [Last Taken Unknown] - History of Present Ilness Narrative: Patient states that her family is all sick with an upper respiratory infection and she thinks that she might have caught it too. She has a cough, body aches and possibly a fever. Timing: constant, getting worse Severity: mild Frequency/Possible Cause: Reports: occasional episodes, smoke exposure Modifying Factors - Improves: Reports: rest Modifying Factors - Worsens: Reports: activity, deep breath Associated Symptoms: Reports: chest pain/soreness, cough, shortness of breath Review of Systems - Review of Systems Constitutional: Present: recent illness. Absent: fever, chills, weakness, fatigue, malaise EYE: Present: no symptoms reported ENT: Absent: ear pain, sore throat Respiratory: Present: cough. Absent: shortness of breath Cardiology: Absent: chest pain, palpitations Gastrointestinal/Abdominal: Absent: nausea, vomiting, diarrhea, abdominal pain Genitourinary: Present: no symptoms reported Musculoskeletal: Present: muscle pain - generalized aches. Absent: back pain Skin: Present: no symptoms reported Neurological: Present: no symptoms reported Endocrine: Present: no symptoms reported Hematologic/Lymphatic: Present: no symptoms reported Psych: Present: no symptoms reported - Patient's Past Medical History Patient History - Medical: Arthritis, Diabetes Type 2 Insulin Dependent, GERD Patient History - Cardiac/Respiratory: CHF, Hypertension, Hyperlipidemia Patient History - Cancer: Cervical Patient History - Surgical Procedures: Cholecystectomy, Hysterectomy Patient History - Other: None - Family History Mother Family History - Medical: Father Family History - Medical: - Social History Living Situations: home Abuse History: No History of abuse Psych History: No pertinent hx Smoking Status: Current some day smoker Alcohol Use: none Drug Use: none - Immunizations Immunizations Up to Date: Yes Hx Pneumococcal Vaccination: Yes History of Influenza Vaccine: More Information Required to Determine Physical Exam - Physical Exam General Appearance: Present: alert, no apparent distress, obese Head Exam: Present: normal inspection, no evidence of injury Eye Exam: Normal inspection: bilateral, PERRL: bilateral, EOMI: bilateral Ears, Nose, Throat: Present: normal ENT inspection, normal pharynx Neck: Present: normal inspection, nontender Respiratory: Present: no respiratory distress, normal breath sounds, no accessory muscle use, chest nontender, lungs clear Cardiovascular/Chest: Present: regular rate, rhythm, no murmur Gastrointestinal/Abdominal: Present: normal bowel sounds, nontender, nondistended, soft Back Exam: Present: normal inspection, normal range of motion Extremity Exam: Present: normal inspection, non-tender, normal range of motion Neurological Exam: Present: alert, oriented, normal mood/affect, no motor/ sensory deficits Skin Exam: Present: normal color, warm/dry ED Progress - Results and Orders Patient's Lab Results:: I have reviewed the patient's lab results. Results and Orders: Laboratory Tests 08/03/17 14:41 Influenza Type A Ag Negative Influenza Type B Ag Negative - Vital Signs Patient's Vital Signs:: I have reviewed the patient's vital signs. Vital Signs: Vital Signs 08/03/17 14:11 Temperature 36.7 C Pulse Rate 102 H Respiratory 20 Rate Blood Pressure 172/91 O2 Sat by Pulse 95 Oximetry - Progress/Reassessment Chief Complaint: Upper Respiratory Symptoms Progress Note-Subjective: 08/03/17 15:08 Azithromycin 500 mg PO Departure Clinical Impression: Acute exacerbation of chronic bronchitis - Departure Disposition: Home self-care Condition: Good Instructions: Chronic Obstructive Pulmonary Disease, [id number], Chronic Obstructive Pulmonary Disease Exacerbation, [id number] Referrals: Elian Macedo MD [Primary Care Provider] - (2-3 days) Prescriptions: Azithromycin 250 mg PO DAILY #4 tablet
[2017-08-03] MEDS ORDERED: AZITHROMYCIN 250 MG TABLET ONE (15:27)
== END 2017-08-03 15:46 | disposition home or self-care (01) ==
LOC: ER 14:03
DX: J44.1 Chronic obstructive pulmonary disease with (acute) exacerbation (principal); E11.9 Type 2 diabetes mellitus without complications; Z79.4 Long term (current) use of insulin; E78.5 Hyperlipidemia, unspecified; Z85.41 Personal history of malignant neoplasm of cervix uteri; I10 Essential (primary) hypertension; F17.200 Nicotine dependence, unspecified, uncomplicated